=== PATIENT | male | born 1975 | race Caucasian/White ===

== ENCOUNTER → 2017-09-25 | Outpatient (CLI) | payer OTHER | LOC: FIMAGING 13:21 | PROVIDERS: ATTEND Orthopaedic Surgery | DX: M25.712 Osteophyte, left shoulder (principal); Z98.890 Other specified postprocedural states ==

== ENCOUNTER 2018-07-05 07:25 | Emergency (ER) | payer BC, OTHER ==
[2018-07-05] MEDS ORDERED: ALBUTEROL 3 ML DEYVIAL IH ONE (08:58)
[2018-07-05] MEDS ORDERED: ALBUTEROL 3 ML DEYVIAL ONE (08:59)
--- NOTE | 2018-07-05 09:43 | EDPHY ---
H & P Stated Complaint: difficulty breathing Time Seen by Provider: 07/05/18 08:02 HPI/ROS: CHIEF COMPLAINT: Lung tightness HISTORY OF PRESENT ILLNESS: 42-year-old male presents emergency department reporting that this morning he woke with anterior chest tightness. Patient thinks this is related to a bronchitis which he was diagnosed with 3 weeks ago. At that time the patient had been sick for about a week and a half with slight cough, dry, and a bit of an upper respiratory symptoms. He was seen at urgent care and was given prednisone as well as albuterol meter dose inhaler. This seemed to improve his symptoms. 2 days ago he developed a coughing fit in since that time has had chest tightness when he takes a deep breath. He has not had a fever. No upper respiratory infection symptoms currently. He does have a history of reflux but states that that causes pain in his chest consistently as opposed to only pain when he takes deep breath. No fever, chills, palpitations, vomiting, diarrhea, urinary complaints, headache , lightheadedness. REVIEW OF SYSTEMS: A comprehensive 10 system review of systems was reviewed and is otherwise negative aside from elements mentioned in the history of present illness and medical decision making. PAST MEDICAL HISTORY: Recent diagnosis of bronchitis. Patient has been placed on albuterol meter dose inhaler. No personal or family history of coronary artery disease or thromboembolic disease. No recent prolonged travel, surgery, or immobilization. SOCIAL HISTORY: Nonsmoker, no alcohol. VITAL SIGNS Reviewed by me. GENERAL: Well-developed, well-nourished, resting comfortably in no respiratory distress. HEENT: Atraumatic. Eyes: No icterus, no injection. Mouth: moist mucous membranes. No erythema or lesions. Neck: supple with no adenopathy. LUNGS: Clear to auscultation bilaterally, no wheezes, rhonchi or rales. CARDIAC: Regular rate and rhythm, no rubs, murmurs or gallops. ABDOMEN: Soft, nontender, nondistended, bowel sounds normal. BACK: No CVA tenderness. EXTREMITIES: No trauma. No edema. Range of motion is normal throughout. NEURO: Alert and oriented, grossly nonfocal. SKIN: Warm and dry, no rash. PSYCHIATRIC: Normal mentation, no agitation. - Personal History Current Tetanus/Diphtheria Vaccine: Yes Current Tetanus Diphtheria and Acellular Pertussis (TDAP): Yes - Medical/Surgical History Hx Asthma: No Hx Chronic Respiratory Disease: No Hx Diabetes: No Hx Cardiac Disease: No Hx Renal Disease: No Hx Cirrhosis: No Hx Alcoholism: No Hx HIV/AIDS: No Hx Splenectomy or Spleen Trauma: No Other PMH: cholecystectomy, shoulder surgery, L tib/fib fx, - Social History Smoking Status: Never smoked Constitutional: Initial Vital Signs Temperature (C) 36.5 C 07/05/18 07:29 Heart Rate 75 07/05/18 07:29 Respiratory Rate 16 07/05/18 07:29 Blood Pressure 150/87 H 07/05/18 07:29 O2 Sat (%) 95 07/05/18 07:29 O2 Delivery Mode Room Air Allergies/Adverse Reactions: CATS/DOGS Allergy (Uncoded 07/05/18 07:28) ENVIRONMENTAL Allergy (Uncoded 07/05/18 07:28) Home Medications: Medication Instructions Recorded Herbals/Supplements -Info Only 1 ea PO DAILY 11/15/14 Multivitamins [Tab-A-Srini] 1 each PO DAILY 11/15/14 Albuterol 07/05/18 Albuterol [Proventil Neb] 3 ml IH QID #20 deyvial 07/05/18 Atrovent Hfa (*) 07/05/18 Azithromycin 250 - 500 mg PO DAILY #6 tablet 07/05/18 Medical Decision Making - Diagnostics EKG Interpretation: 12-LEAD EKG: Please see the full report in [facility]. My interpretation: Normal sinus rhythm no ischemic changes Xray: [ ] was obtained. I viewed the images myself on the PACS system. My interpretation of the images is: [ ]. The radiology interpretation is: [ ]. I discussed the results with the patient. Imaging Results: Imaging Impressions Chest X-Ray 07/05/18 08:58 Impression: Mild airways disease. No pneumonia. Imaging: I viewed and interpreted images myself ED Course/Re-evaluation: 42-year-old male presents to the emergency department with ongoing symptoms which she thinks are related to bronchitis. Patient has some chest discomfort when he takes a deep breath. Patient is perc negative. Chest x-ray shows airways disease but no pneumonia. EKG demonstrates normal sinus rhythm with no ischemic changes. Troponin is negative. Patient was discharged with albuterol solution to use in the nebulizer machine which his son has, he was given azithromycin for ongoing symptoms of bronchitis , and was encouraged to follow up with his primary care physician. Differential Diagnosis: Differential diagnosis for the patient's shortness of breath was considered including but not limited to pulmonary infectious processes, COPD exacerbation, pulmonary emboli, pulmonary edema, congestive heart failure, and cardiac causes. - Data Points Laboratory Results: 07/05/18 07/05/18 09:55 09:11 POC Troponin I 0.00 ng/mL ng/mL (0.00-0.08) Nasal Influenza A PCR NEGATIVE FOR FLU A (NEGATIVE) Nasal Influenza B PCR NEGATIVE FOR FLU B (NEGATIVE) Medications Given: Discontinued Medications Albuterol (Proventil Neb) 3 ml IH EDNOW ONE Stop: 07/05/18 08:59 Last Admin: 07/05/18 09:02 Dose: 3 ml Point of Care Test Results: Chemistry 07/05/18 09:55 POC Troponin I 0.00 ng/mL ng/mL (0.00-0.08) Departure - Departure Disposition: Home, Routine, Self-Care Clinical Impression: Acute bronchitis Qualifiers: Bronchitis organism: unspecified organism Qualified Code(s): J20.9 - Acute bronchitis, unspecified Condition: Good Instructions: Acute Bronchitis (ED), How to Use a Nebulizer (ED), Bronchospasm (ED) Additional Instructions: Your chest x-ray appears to be consistent with a bronchitis, and has signs of airways disease. I see no evidence of cardiac issue at this time on your EKG. Your troponin was negative. You been given a prescription for azithromycin. Please take this as directed. Please use your albuterol meter dose inhaler 2-4 puffs 3 to 4 times a day for the next several days; or you may use the albuterol nebulizer machine as directed. Please follow up with Dr. Tarango early next week for reexamination. Referrals: Leydi Urena PA [Primary Care Provider] - As per Instructions Prescriptions: Albuterol [Proventil Neb] 3 ml IH QID #20 deyvial Azithromycin 250 - 500 mg PO DAILY #6 tablet
[2018-07-05 10:31] VITALS: BP 138/98
--- NOTE | 2018-07-05 15:25 | CPEKG ---
Test Reason : OPEN Blood Pressure : / mmHG Vent. Rate : 074 BPM Atrial Rate : 076 BPM P-R Int : 144 ms QRS Dur : 087 ms QT Int : 386 ms P-R-T Axes : 028 004 059 degrees QTc Int : 429 ms Sinus rhythm Confirmed by Yaima Bustos ([id number]) on 07/05/2018 3:24:20 PM Referred By: Yaima Bustos Confirmed By:Yaima Bustos
== END 2018-07-05 10:32 | disposition home or self-care (01) ==
DX: J20.9 Acute bronchitis, unspecified (principal)
CPT/HCPCS: 84484-ER; J7613

== ENCOUNTER → 2018-07-11 | Outpatient (CLI) | payer BC | LOC: FIMAGING 08:46 | PROVIDERS: ATTEND Physician Assistant | DX: R07.89 Other chest pain (principal) ==